=== PATIENT | female | born 1960 | race Caucasian/White ===

== ENCOUNTER 2020-03-18 10:37 | Emergency (ER) | payer BC, SELFPAY ==
--- NOTE | ~2020-03-18 | XR_ITS ---
EXAMINATION: XR foot LT standing 2V DATE: 03/18/2020 11:01 INDICATION: Left foot pain. TECHNIQUE: 2 views of left foot were obtained. COMPARISON: None. FINDINGS: There is lateral subluxation of the second metatarsal with respect to the intermediate cune iform, consistent with Lisfranc ligament tear. There is mild osteoarthritis of first tarsometatarsal joint, medial naviculocuneiform joint, and talonavicular joint. There are enthesophytes at the tissue technician ior plantar aspects of calcaneal tuberosity. IMPRESSION: 1. Lateral subluxation of second metatarsal, consistent with Lisfranc ligament tear. 2. Mild polyarticular osteoarthritis. Reviewed, dictated and finalized at location A.
[2020-03-18 10:44] VITALS: BP 166/78; PULSE 68; RESP 20; TEMP 36.2; O2SAT 99
--- NOTE | 2020-03-18 10:57 | ED.LOWEXIN ---
HPI - Extremity Injury (Lower) General Chief Complaint: Extremity Injury, Lower Stated Complaint: lt foot pain Time Seen by Provider: 03/18/20 10:47 Source: patient and RN notes reviewed Mode of arrival: ambulatory Limitations: no limitations History of Present Illness HPI Narrative: 59-year-old female presents with concern for left dorsal foot pain. Reports she was standing for 6 hours yesterday, and by the end of the day had pain in her foot, making it difficult for her to walk. She denies any direct trauma or injury. Reports no pain at rest, reports pain with palpation and weightbearing. She reports she used ice, has not taken any [id number] medications for pain. She denies any bruising swelling, decreased sensation, decreased strength. MD complaint: foot injury Related Data Home Medications Medication Instructions Recorded Confirmed fluticasone furoate-vilanterol 1 inh INHALATION DAILY 03/18/20 03/18/20 [Breo Ellipta] levocetirizine 5 mg PO DAILY 03/18/20 03/18/20 levothyroxine 125 mcg PO DAILY 03/18/20 03/18/20 olmesartan-hydrochlorothiazide 1 tablet PO DAILY 03/18/20 03/18/20 Allergies Allergy/AdvReac Type Severity Reaction Status Date / Time Dust Allergy Difficulty Uncoded 03/18/20 10:45 Breathing Grass Allergy Other Uncoded 03/18/20 10:45 STRAW Allergy Other Uncoded 03/18/20 10:45 TREES Allergy Other Uncoded 03/18/20 10:45 Review of Systems Review of Systems: Narrative: CONSTITUTIONAL: Denies malaise, chills, sweats, or fever. CARDIOVASCULAR: Denies chest pain, palpitations, or edema. RESPIRATORY: Denies cough or dyspnea. SKIN: Denies bruising, redness MUSCULOSKELETAL: Reports left foot pain NEUROLOGIC: Denies numbness, weakness All systems reviewed & are unremarkable except as noted in HPI and below PMFSH Comments At time of signature, agree with nursing past medical, surgical, social and family history. There is no relevant family history pertinent to the presenting complaint Exam Narrative: Exam Narrative: GENERAL: Well-appearing, well-nourished, and in no acute distress. HEAD: Normocephalic, atraumatic. EYES: PERRLA, conjunctivae clear NECK: Supple. CHEST: Speaks in full sentences. No respiratory distress. HEART: Regular rate and rhythm. Normal and equal peripheral pulses. EXTREMITIES: Left foot, digits of left foot have normal strength and sensation, normal range of motion. No edema or ecchymosis. 5/5 strength with ankle and digit flexion and extension. Normal sensation with sensitivity to light touch and pain. Mild medial dorsal tenderness. No open wounds, no skin tenting, no devitalized tissue or atrophy, no trophic changes, no obvious deformity, alignment normal, nearby joints and structures intact. Distal pulses palpable and equal bilaterally, skin warm, dry, pink. Capillary refill less than 3 seconds. SKIN: Warm, dry, no rash. NEURO: Alert and oriented x3. PSYCH: Normal mood and affect Course Course Emergency Course: Patient is aware of diagnosis, understands and agrees to treatment plan. Anticipatory guidance given. Patient agrees to follow-up as directed and is aware of reasons to seek care at the emergency department. Portions of this record may have been created with voice recognition software Vital Signs Vital signs: Vital Signs Temperature 97.2 F L 03/18/20 10:44 Pulse Rate 68 03/18/20 10:44 Respiratory Rate 20 03/18/20 10:44 Blood Pressure 166/78 H 03/18/20 10:44 Pulse Oximetry 99 03/18/20 10:44 Temperature 97.2 F L 03/18/20 10:44 Pulse Rate 68 03/18/20 10:44 Respiratory Rate 20 03/18/20 10:44 Blood Pressure 166/78 H 03/18/20 10:44 Pulse Oximetry 99 03/18/20 10:44 Reviewed. MDM - Extremity Injury (Lower) MDM Narrative Medical decision making narrative: Patients pain is consistent with musculoskeletal etiology. No signs of neurological or vascular compromise on exam. Compartments and tissues are soft without signs of compartment s
== END 2020-03-18 11:40 | disposition home or self-care (01) ==
PROVIDERS: Emergency Provider Nurse Practitioner; PCP Internal Medicine Endocrinology, Diabetes & Metabolism
DX: S93.622A Sprain of tarsometatarsal ligament of left foot, initial encounter (principal); X50.1XXA Overexertion from prolonged static or awkward postures, initial encounter; I10 Essential (primary) hypertension; J45.909 Unspecified asthma, uncomplicated; E03.9 Hypothyroidism, unspecified
CPT/HCPCS: 73620; 99213; G0463